=== PATIENT | female | born 1970 | race Caucasian/White ===

== ENCOUNTER → 2025-10-15 08:18 | Day surgery (SDC) | payer OTHER, BC, SELFPAY ==
[2025-10-15] VITALS (10 sets, daily range): BP systolic 120–141; BP diastolic 71–82; PULSE 77–106; RESP 16–20; TEMP 36.2–36.5; O2SAT 94–99
--- NOTE | 2025-10-15 05:52 | PM.HP.1 ---
History of Present Illness History of Present Illness Chief complaint: L bunion w/midfoot fusion Narrative: 55 year old female here for bunions with pain. The left side is worse, though both sides alternate in severity. She reports progressive worsening of symptoms over time, with the condition significantly impacting her ability to jog and causing hip misalignment due to altered gait mechanics. The left foot has been particularly problematic, causing her to walk on the side of her foot to compensate. Pain ranges from +6-8/10. The patient experiences pain that occurs both during activity and at rest. She reports feeling discomfort after walking five miles and even when sitting. The pain has progressed to shooting pains that wake her up at night, with episodes of stiffening that last about a month before lessening and then spiking again. Both feet experience symptoms in waves. She describes the pain as shooting through the bunion area. Twyla had previous conservative treatment approximately 15-16 years ago when she had inserts made. She wore them briefly but discontinued use as they did not resolve the problem. She has not pursued any other treatment since that time and has done research on the proposed procedures and techniques since last visit. The condition has significantly impacted her daily functioning, particularly her jogging activities, and has affected her gait to the point where she cannot continue walking normally on the affected foot. She reports walking on the outside of her foot due to the pain and discomfort. Patient denies n/v/f/c/sob/cp. [facility] Medical History (Updated 10/12/25 @ 12:09 by Bailey Barclay RN) HTN (hypertension) Bunion, left Surgical History (Updated 10/12/25 @ 12:09 by Bailey Barclay RN) Hx of colonoscopy (08/29/23) History of Social History Smoking Status: Never smoker Meds Home Medications and Allergies Allergies Allergy/AdvReac Type Severity Reaction Status Date / Time SULFA (sulfonamide) Allergy Unknown Uncoded 02/13/18 12:13 Exam Extrem Other: Left foot: Adequate ankle, ST, and 1st MTP ROMs. Hypermobility at TMT 1. Severe hallux abducto valgus with enlarged medial eminence. Assessment & Plan Assessment & Plan narrative: 1. Left foot flail joint 2. Left foot hallux valgus Patient seen and evaluated. Surgical plan: left foot first tarsometatarsal arthrodesis, hallux rotational correction, and calcaneal allograft harvest and implantation. Risks and benefits of the procedure discussed with all questions answered to patient's satisfaction. Reviewed potential complications that may include but not limited to the following: DVT, failure to resolve all symptoms, infection, nerve injury, bleeding, recurrence, or wound. Reviewed surgical technique and general aftercare protocols. All questions answered to patient's satisfaction with no guarantees made. Patient verbalized understanding and agreed with surgical plan. RTC for post-op. Time-Based Coding :: [TOTAL MINUTES] spent with patient and on the chart (including review of chart, obtaining history, exam, reviewing outside data, placing orders, documenting exam and treatment plan, and counseling patient) on [DATE].
--- NOTE | 2025-10-15 09:07 | PM.PREOP ---
Pre-operative Note Interval Note History & Physical reviewed/Exam performed by Physician: Yes Changes to H&P: No
[2025-10-15] MEDS: MELOXICAM 7.5 MG TABLET 15 MG PO (09:12)
[2025-10-15] MEDS: ACETAMINOPHEN 325 MG TABLET 975 MG PO (09:13)
[2025-10-15] MEDS: LACTATED RINGERS 1,000 ML 42 ML IV ×4 (09:14→14:34)
[2025-10-15] MEDS: GABAPENTIN 300 MG CAPSULE PO (09:15)
--- NOTE | 2025-10-15 11:04 | SUR.OPER ---
Supine on padded OR bed, head on pillow, arms secured on padded arm boards at <90 degrees abduction, legs uncrossed, safety belt at waist, tape over blanket over lower right leg, left leg draped free with gel bump under thigh and blankets under and elevating the lower leg and knee .
--- NOTE | 2025-10-16 18:49 | PM.OP.1 ---
Operative Date/Time/Diagnoses Date of procedure: 10/15/25 Time of procedure: 09:45 Pre-op diagnosis: 1. Left foot flail first tarsometatarsal joint 2. Left foot hallux valgus Post-op diagnosis: same Procedure & Clinicians Procedure: 1. Left midfoot arthrodesis, single joint 2. Left hallux rotation correction 3. Left calcaneal bone graft harvest Same procedure(s) as scheduled: Yes Indications: Painful foot that failed conservative measures Surgeon: Venkata Murguia Assisted?: No Anesthesia Type: General, Peripheral nerve block and Local Operative Notes Findings: Hypermobile first ray and deformity consistent with diagnosis Closure Type: primary Specimen(s): none sent Applied: implant(s) Estimated Blood Loss (mL): 25 Procedure in detail: Patient was identified, brought into operating room on a gurney, and transferred onto operating table in supine position. Regional block was administered in holding area, and general anesthesia was inducted in operating room. A thigh tourniquet was placed over well-padded surface and set to 275 mmHg. Left lower limb was then prepped and draped in the usual sterile fashion, followed by official timeout with surgical team all in agreement. Attention was directed to left midfoot. A linear incision was made over first tarsometatarsal joint using a # 15 scalpel. Dissection was carried out in layers from skin down to the level bone. Care was taken to protect the tendons and neurovascular structures. An osteotome was used to free up the adhesion within and around the first tarsometatarsal joint. Appropriate cuts were made using a sagittal saw under power. The removed surfaces were then fenestrated using a drill bit. Decision was made obtain autograft from the calcaneus. Attention was carried to the left heel, and a stab incision was made over verified location on fluoroscopy. Harvesting was done per manufacture instructions with the provided Arthrex system. The heel incision was then irrigated and closed using a 3-0 nylon. The obtained bone graft was then added into the first tarsometatarsal joint to augment the fusion. Attention was simultaneously directed to left forefoot, where a linear incision was made using a #15 scalpel over lateral aspect of first metatarsophalangeal joint. Dissection was carried out from skin down to the bone, and a Speed Release instrument was inserted to free up the fibular sesamoid complex. Attention was redirected back to left midfoot. At this time, decision was made to finalize the arthrodesis site using designated an interfragmentary screw and a locking plate. Surgical corrections were visualized under fluoroscopy to verify improved anatomical alignment. Attention was also directed to medial eminence of first metatarsal head, where a linear incision was made using a #15 scalpel. Dissection was carried out from skin down to the capsule, where thickened bursal sac as well as hypertrophic tissue were identified and sharply removed. Incision was extended distally to the proximal phalanx, where a medial based wedge was made using a sagittal saw. The osteotomy was fixated with a staple. All surgical sites were irrigated using copious saline.. Tourniquet was released at 120 minutes, and immediate capillary refill noted to all toes. All incision sites were closed from deep to superficial using a range of 2-0 vicryl, 3-0 vicryl, 4-0 vicryl, and 3-0 nylon. Left foot was cleaned and dried, and Xeroform was applied to all procedure sites. Bulky sterile dressings were used to cover the foot and leg, and a posterior splint was made and secured with elastic bandage wraps. Patient tolerated procedure without complication and was transferred to PACU with vital signs stable. Complications: none Post-operative Condition: stable Disposition: same day surgery Plan for aftercare: NWB to surgical limb. Elevate above heart on pillows. Ice behind knee intermittently. Keep dressing clean, dry, and intact.
== END | disposition home or self-care (01) ==
PROVIDERS: Family Provider Obstetrics & Gynecology; PCP Family Medicine; Referring Provider Podiatrist Foot & Ankle Surgery; Visit Provider Podiatrist Foot & Ankle Surgery
PROC: 0QBP0ZZ Excision of Left Metatarsal, Open Approach (ICD-10-PCS; CPT 28292; principal; 2025-10-15 09:45)
DX: M25.272 Flail joint, left ankle and foot (principal); M20.5X2 Other deformities of toe(s) (acquired), left foot; G89.18 Other acute postprocedural pain; I10 Essential (primary) hypertension
CPT/HCPCS: 28740; 28310; 20900; 64450; C1713; J0666; J0689; J1100; J1885; J2250; J2405; J2704; J3010; J7050; J7120